=== PATIENT | female | born 1985 | race African-American/Black ===

== ENCOUNTER 2022-09-26 21:13 | Emergency (ER) | payer SELFPAY ==
[2022-09-26 22:20] LABS: #Basophils 0.1 thou/uL (0.0-0.2); #Eosinphils 0.1 thou/uL (0.0-0.7); #Lymphocytes 2.1 thou/uL (1.20-3.40); #Monocytes 0.5 thou/uL (0.11-0.59); #Neutrophils 3.2 thou/uL (1.40-6.50); %Basophils 1.5 % (0.0-1.0); %Eosinophils 1.8 % (0.0-10.0); %Lymphocytes 34.9 % (21.0-51.0); %Neutrophils 53.8 % (42.0-75.0); Hemoglobin 14.6 g/dL (12.0-16.0); Mean Corpuscular HGB CONC 33.2 g/dL (32.0-36.0); Mean Corpuscular Hemoglobin 27.6 pg (27.0-31.0); Mean Corpuscular Volume 83.1 fl (78.0-98.0); Mean Platelet Volume 9.1 fL (7.4-10.4); Platelet Count 218 10x3/uL (130-400); RBC Distribution Width 14.2 % (11.5-14.5); Red Blood Cell (RBC) Count 5.28 mill/uL (4.20-5.40); White Blood Cell (WBC) Count 5.9 10x3/uL (4.8-10.8)
[2022-09-26 22:41] LABS: ALT (SGPT) 12 U/L (8-55); AST (SGOT) 16 U/L (5-34); Alkaline Phosphatase 63 U/L (40-110); Anion Gap 13 mmol/L (10-20); BUN (Urea Nitrogen) 9 mg/dL (7.0-18.7); Bilirubin, Total 0.2 mg/dL (0.2-1.2); Calc. Creatinine Clearance 0 mL/min (70-130); Calcium 9.4 mg/dL (7.8-10.44); Carbon Dioxide 25 mmol/L (22-29); Chloride 103 mmol/L (98-107); Estimated GFR 83; Globulin 4.1 g/dL (2.4-3.5); Glucose 100 mg/dL (70-105); Potassium 3.6 mmol/L (3.5-5.1); Protein, Total 8.1 g/dL (6.0-8.3); Sodium 137 mmol/L (136-145)
[2022-09-26] MEDS ORDERED: Ondansetron ODT 4 MG TAB ONE (23:00)
[2022-09-26 23:16] LABS: Bilirubin Negative (Negative); Blood, Urine Negative (Negative); Clarity Clear (Clear); Glucose, Urine (Dipstick) Normal (Negative); Ketone, Urine Negative (Negative); Leukocyte Negative Leu/uL (Negative); Nitrite Negative (Negative); Protein, Urine (Dipstick) Negative (Neg-Trace); Specific Gravity, Urine 1.014 (1.002-1.036); Urobilinogen Normal mg/dL (Less than 2)
[2022-09-26 23:17] LABS: SARS-CoV-2 NAA Rapid Test DETECTED (NotDetected)
[2022-09-27] MEDS ORDERED: Ibuprofen 800 MG TAB ONE (00:14)
[2022-09-27] MEDS ORDERED: Acetaminophen 500 MG TAB ONE (00:14)
== END 2022-09-27 00:30 | disposition home or self-care (01) ==
LOC: ERS 21:13
DX: U07.1 COVID-19 (principal); R19.7 Diarrhea, unspecified; M79.10 Myalgia, unspecified site; R11.2 Nausea with vomiting, unspecified; F17.210 Nicotine dependence, cigarettes, uncomplicated
CPT/HCPCS: 36415; 71045; 80053; 81003; 84484; 85025; 93005; Q0162

== ENCOUNTER 2023-02-03 04:10 | Emergency (ER) | payer SELFPAY ==
[2023-02-03] MEDS ORDERED: Acetaminophen 500 MG TAB ONE (04:53)
[2023-02-03] MEDS ORDERED: Ipratropium/Albuterol 3 ML NEB ONE ×2 (04:55)
[2023-02-03 06:38] LABS: #Basophils 0.1 thou/uL (0.0-0.2); #Eosinphils 0.1 thou/uL (0.0-0.7); #Monocytes 0.3 thou/uL (0.11-0.59); #Neutrophils 7.1 thou/uL (1.40-6.50); %Basophils 0.7 % (0.0-1.0); %Eosinophils 1.1 % (0.0-10.0); %Lymphocytes 13.3 % (21.0-51.0); %Monocytes 3.6 % (0.0-10.0); %Neutrophils 80.6 % (42.0-75.0); Hemoglobin 12.5 g/dL (12.0-16.0); Mean Corpuscular HGB CONC 32.9 g/dL (32.0-36.0); Mean Corpuscular Hemoglobin 27.2 pg (27.0-31.0); Mean Corpuscular Volume 82.6 fl (78.0-98.0); Mean Platelet Volume 9.9 fL (7.4-10.4); Platelet Count 263 10x3/uL (130-400); RBC Distribution Width 14.7 % (11.5-14.5); White Blood Cell (WBC) Count 8.8 10x3/uL (4.8-10.8)
[2023-02-03 07:02] LABS: ALT (SGPT) 13 U/L (8-55); AST (SGOT) 10 U/L (5-34); Albumin 3.6 g/dL (3.5-5.0); Alkaline Phosphatase 66 U/L (40-110); Anion Gap 13 mmol/L (10-20); BUN (Urea Nitrogen) 12 mg/dL (7.0-18.7); Bilirubin, Total 0.3 mg/dL (0.2-1.2); Calc. Creatinine Clearance 0 mL/min (70-130); Calcium 8.8 mg/dL (7.8-10.44); Carbon Dioxide 22 mmol/L (22-29); Chloride 107 mmol/L (98-107); Estimated GFR 90; Globulin 3.5 g/dL (2.4-3.5); Glucose 127 mg/dL (70-105); Potassium 3.9 mmol/L (3.5-5.1); Protein, Total 7.1 g/dL (6.0-8.3); Sodium 138 mmol/L (136-145)
[2023-02-03 07:05] LABS: Troponin I Less than 0.010 ng/mL (< 0.028)
== END 2023-02-03 08:15 | disposition home or self-care (01) ==
LOC: ERS 04:10
DX: J45.901 Unspecified asthma with (acute) exacerbation (principal); F17.210 Nicotine dependence, cigarettes, uncomplicated
CPT/HCPCS: 71045; 80053; 84484; 85025; 93005; J7620

== ENCOUNTER 2023-02-28 11:39 | Emergency (ER) | payer SELFPAY ==
[2023-02-28] MEDS ORDERED: Dexameth. Sod Phosp. 10 MG/ML (CHEMO USE ONLY) ONE (13:01)
[2023-02-28] MEDS ORDERED: Dexamethasone 4 mg/ml Vial ONE (13:01)
== END 2023-02-28 15:36 | disposition home or self-care (01) ==
LOC: ERS 11:39
DX: J44.1 Chronic obstructive pulmonary disease with (acute) exacerbation (principal); F17.210 Nicotine dependence, cigarettes, uncomplicated
CPT/HCPCS: 99284; J1100

== ENCOUNTER 2023-04-08 03:51 | Emergency (ER) | payer MEDICAID, SELFPAY ==
[2023-04-08] MEDS ORDERED: Ipratropium/Albuterol 3 ML NEB ONE (03:59)
[2023-04-08] MEDS ORDERED: Magnesium 2 GM/50 ML BAG (IN WATER) ONE (03:59)
[2023-04-08] MEDS ORDERED: predniSONE 20 MG TAB ONE (03:59)
[2023-04-08] MEDS ORDERED: Ketorolac Tromethamine 30 MG/ML VIAL ONE (04:31)
[2023-04-08 04:52] LABS: #Basophils 0.1 thou/uL (0.0-0.2); #Eosinphils 0.3 thou/uL (0.0-0.7); #Monocytes 0.8 thou/uL (0.11-0.59); %Basophils 0.6 % (0.0-1.0); %Eosinophils 2.7 % (0.0-10.0); %Monocytes 7.5 % (0.0-10.0); %Neutrophils 56.8 % (42.0-75.0); Hematocrit 39.8 % (36.0-47.0); Hemoglobin 13.3 g/dL (12.0-16.0); Mean Corpuscular HGB CONC 33.4 g/dL (32.0-36.0); Mean Corpuscular Hemoglobin 27.3 pg (27.0-31.0); Mean Corpuscular Volume 81.6 fl (78.0-98.0); Platelet Count 209 10x3/uL (130-400); RBC Distribution Width 14.1 % (11.5-14.5); Red Blood Cell (RBC) Count 4.88 mill/uL (4.20-5.40); White Blood Cell (WBC) Count 10.5 10x3/uL (4.8-10.8)
[2023-04-08 05:00] LABS: BHCG - Serum Negative (NEGATIVE); Pregs Control Bar Appear? YES (CONTROL BAR)
[2023-04-08 05:01] LABS: Pregs Control Background? CLEAR/WHITE (CLR/WHITE)
[2023-04-08 05:14] LABS: Troponin I Less than 0.010 ng/mL (< 0.028)
[2023-04-08 05:18] LABS: ALT (SGPT) 16 U/L (8-55); AST (SGOT) 17 U/L (5-34); Albumin 4.1 g/dL (3.5-5.0); Alkaline Phosphatase 66 U/L (40-110); Anion Gap 16 mmol/L (10-20); BUN (Urea Nitrogen) 16 mg/dL (7.0-18.7); Bilirubin, Total 0.3 mg/dL (0.2-1.2); Calc. Creatinine Clearance 0 mL/min (70-130); Calcium 9.2 mg/dL (7.8-10.44); Carbon Dioxide 22 mmol/L (22-29); Chloride 106 mmol/L (98-107); Estimated GFR 94; Globulin 3.1 g/dL (2.4-3.5); Glucose 97 mg/dL (70-105); Potassium 4.3 mmol/L (3.5-5.1); Protein, Total 7.2 g/dL (6.0-8.3); Sodium 140 mmol/L (136-145)
== END 2023-04-08 05:36 | disposition home or self-care (01) ==
LOC: ERS 03:51
DX: J45.901 Unspecified asthma with (acute) exacerbation (principal); F17.210 Nicotine dependence, cigarettes, uncomplicated
CPT/HCPCS: 36415; 71045; 80053; 83880; 84484; 84703; 85025; 93005; 96365; 96375; J1885; J3475; J7512; J7620

== ENCOUNTER 2023-04-09 00:32 | Inpatient (IN) | payer MEDICARE, MEDICAID ==
[2023-04-09] MEDS ORDERED: Dexamethasone 10 MG/ML VIAL ONE (01:17)
[2023-04-09] MEDS ORDERED: Ipratropium/Albuterol 3 ML NEB ONE (01:44)
[2023-04-09] MEDS ORDERED: Acetaminophen 325 MG TAB ONE ×2 (02:34→10:50)
[2023-04-09 04:30] LABS: #Basophils 0.1 thou/uL (0.0-0.2); #Monocytes 0.8 thou/uL (0.11-0.59); #Neutrophils 13.6 thou/uL (1.40-6.50); %Basophils 0.3 % (0.0-1.0); %Eosinophils 0.1 % (0.0-10.0); %Lymphocytes 10.2 % (21.0-51.0); %Monocytes 4.8 % (0.0-10.0); Hematocrit 37.2 % (36.0-47.0); Hemoglobin 12.7 g/dL (12.0-16.0); Mean Corpuscular HGB CONC 34.1 g/dL (32.0-36.0); Mean Corpuscular Hemoglobin 27.7 pg (27.0-31.0); Mean Platelet Volume 9.5 fL (7.4-10.4); Platelet Count 264 10x3/uL (130-400); Red Blood Cell (RBC) Count 4.59 mill/uL (4.20-5.40); White Blood Cell (WBC) Count 16.1 10x3/uL (4.8-10.8)
[2023-04-09] MEDS ORDERED: Magnesium 2 GM/50 ML BAG (IN WATER) ONE (04:35)
[2023-04-09 04:53] LABS: ALT (SGPT) 17 U/L (8-55); AST (SGOT) 14 U/L (5-34); Albumin 4.1 g/dL (3.5-5.0); Alkaline Phosphatase 60 U/L (40-110); Anion Gap 15 mmol/L (10-20); BUN (Urea Nitrogen) 12 mg/dL (7.0-18.7); Bilirubin, Total 0.3 mg/dL (0.2-1.2); Calc. Creatinine Clearance 0 mL/min (70-130); Calcium 9.1 mg/dL (7.8-10.44); Carbon Dioxide 23 mmol/L (22-29); Chloride 105 mmol/L (98-107); Estimated GFR 84; Globulin 3.5 g/dL (2.4-3.5); Glucose 124 mg/dL (70-105); Potassium 3.8 mmol/L (3.5-5.1); Protein, Total 7.6 g/dL (6.0-8.3); Sodium 139 mmol/L (136-145)
[2023-04-09] MEDS ORDERED: Acetaminophen 325 MG TAB PO PRN (06:00)
[2023-04-09] MEDS ORDERED: Ondansetron PF 4 MG/2 ML Vial IVP PRN (06:00)
[2023-04-09] MEDS ORDERED: Ondansetron ODT 4 MG TAB SL PRN (06:00)
[2023-04-09 06:31] VITALS: BMI 63.8
[2023-04-09] MEDS: Ipratropium/Albuterol 3 ML NEB NEB SCH ×4 (10:50→22:43)
[2023-04-09] MEDS ORDERED: Benzonatate 100 MG CAP ONE (11:29)
[2023-04-09] MEDS: Benzonatate 100 MG CAP PO SCH ×3 (11:31→19:54)
[2023-04-09] MEDS ORDERED: FLU VACC QS2023-24(6MOS UP)/PF 60 MCG/0.5 ML SYRINGE IM ONE (13:30)
[2023-04-09] MEDS ORDERED: methylPREDNISolone Sod Succ/PF 125 MG/2 ML VIAL IVP SCH (14:00)
[2023-04-09] MEDS: HYDROcodone/Acetaminophen 10/325 mg Tablet PO PRN ×2 (14:56→20:56)
[2023-04-09] MEDS ORDERED: methylPREDNISolone Sod Succ 40 MG VIAL IVP SCH ×2 (15:00→22:00)
[2023-04-09] MEDS: Doxycycline 100 MG in Sodium Chloride 0.9% 100 ML IVPB SCH (19:55)
[2023-04-09] MEDS: methylPREDNISolone Sod Succ 40 MG VIAL IVP SCH (20:59)
[2023-04-10] MEDS: Guaifenesin DM 100-10/5 ML UDCUP PO PRN ×4 (00:22→20:39)
[2023-04-10] MEDS: Ipratropium/Albuterol 3 ML NEB NEB SCH ×6 (02:54→22:10)
[2023-04-10] MEDS: HYDROcodone/Acetaminophen 10/325 mg Tablet PO PRN ×3 (05:34→20:31)
[2023-04-10] MEDS: methylPREDNISolone Sod Succ 40 MG VIAL IVP SCH ×2 (05:38→14:13)
[2023-04-10 05:43] LABS: #Monocytes 0.3 thou/uL (0.11-0.59); #Neutrophils 11.2 thou/uL (1.40-6.50); %Basophils 0.2 % (0.0-1.0); %Lymphocytes 6.8 % (21.0-51.0); %Monocytes 2.7 % (0.0-10.0); %Neutrophils 89.7 % (42.0-75.0); Hematocrit 36.5 % (36.0-47.0); Mean Corpuscular HGB CONC 32.9 g/dL (32.0-36.0); Mean Corpuscular Hemoglobin 26.4 pg (27.0-31.0); Mean Corpuscular Volume 80.4 fl (78.0-98.0); Mean Platelet Volume 10.1 fL (7.4-10.4); Platelet Count 284 10x3/uL (130-400); RBC Distribution Width 14.1 % (11.5-14.5); Red Blood Cell (RBC) Count 4.54 mill/uL (4.20-5.40); White Blood Cell (WBC) Count 12.5 10x3/uL (4.8-10.8)
[2023-04-10 06:11] LABS: Anion Gap 13 mmol/L (10-20); BUN (Urea Nitrogen) 13 mg/dL (7.0-18.7); CRP (Inflammatory) 0.56 mg/dL (= or < 0.5); Calc. Creatinine Clearance 251 mL/min (70-130); Calcium 9.1 mg/dL (7.8-10.44); Carbon Dioxide 23 mmol/L (22-29); Chloride 105 mmol/L (98-107); Estimated GFR 102; Glucose 133 mg/dL (70-105); Potassium 4.4 mmol/L (3.5-5.1); Sodium 137 mmol/L (136-145)
[2023-04-10] MEDS: Doxycycline 100 MG in Sodium Chloride 0.9% 100 ML IVPB SCH (08:17)
[2023-04-10] MEDS: Benzonatate 100 MG CAP PO SCH ×3 (08:18→20:32)
[2023-04-10] MEDS ORDERED: Albuterol 200 PUFF (6.7GM INHALER) INH PRN (19:42)
[2023-04-10] MEDS: Doxycycline 100 MG CAP PO SCH (20:32)
[2023-04-10] MEDS ORDERED: Montelukast Sodium 10 mg Tablet PO SCH (21:00)
[2023-04-11] MEDS: Ipratropium/Albuterol 3 ML NEB NEB SCH ×4 (02:24→15:04)
[2023-04-11] MEDS: HYDROcodone/Acetaminophen 10/325 mg Tablet PO PRN ×3 (02:36→14:42)
[2023-04-11] MEDS ORDERED: predniSONE 20 MG TAB PO SCH (08:00)
[2023-04-11] MEDS: Doxycycline 100 MG CAP PO SCH (08:04)
[2023-04-11] MEDS: Benzonatate 100 MG CAP PO SCH ×2 (08:04→14:42)
[2023-04-11] MEDS: Guaifenesin DM 100-10/5 ML UDCUP PO PRN (14:42)
[2023-04-11 16:27] VITALS: BP 164/70; TEMP 98.4
== END 2023-04-11 18:41 | disposition home or self-care (01) | DRG 202 ==
LOC: ERS 00:32 → ERHOLD 06:08 → T4-A 13:12 → OBSVTOIN 04-10 19:39
PROVIDERS: ADMIT Hospitalist; ATTEND Hospitalist
DX: J45.901 Unspecified asthma with (acute) exacerbation (principal); J18.9 Pneumonia, unspecified organism; Z68.44 Body mass index [BMI] 60.0-69.9, adult; Z88.1 Allergy status to other antibiotic agents; E66.01 Morbid (severe) obesity due to excess calories; I89.0 Lymphedema, not elsewhere classified; F17.210 Nicotine dependence, cigarettes, uncomplicated; Z91.190 Patient's noncompliance with other medical treatment and regimen due to financial hardship
CPT/HCPCS: 36415; 71045; 80048; 80053; 83735; 84145; 85025; 86140; 94640; 96365; 97139; J1100; J2920; J3475; J3490; J7512; J7611; J7620

== ENCOUNTER 2024-07-01 21:23 | Inpatient (IN) | payer MEDICAID, MEDICARE ==
[2024-07-01 22:20] LABS: #Basophils 0.05 10x3/uL (0.0-0.2); %Basophils 0.3 % (0.0-1.0); %Eosinophils 1.7 % (0.0-10.0); %Lymphocytes 11.1 % (21.0-51.0); %Monocytes 3.9 % (0.0-10.0); %Neutrophils 81.9 % (42.0-75.0); Hematocrit 33.7 % (36.0-47.0); Hemoglobin 11.4 g/dL (12.0-16.0); Mean Corpuscular HGB CONC 33.8 g/dL (32.0-36.0); Mean Corpuscular Hemoglobin 26.5 pg (27.0-31.0); Mean Corpuscular Volume 78.4 fL (78.0-98.0); Mean Platelet Volume 8.8 fL (7.4-10.4); Platelet Count 498 10x3/uL (130-400); RBC Distribution Width 14.6 % (11.5-14.5)
[2024-07-01 22:42] LABS: Anion Gap 13 mmol/L (10-20); BUN (Urea Nitrogen) 9 mg/dL (7.0-18.7); Calc. Creatinine Clearance 0 mL/min (70-130); Carbon Dioxide 29 mmol/L (22-29); Chloride 102 mmol/L (98-107); Potassium 3.5 mmol/L (3.5-5.1); Sodium 140 mmol/L (136-145)
[2024-07-01 22:43] LABS: ALT (SGPT) 9 U/L (Less than 34); AST (SGOT) 36 U/L (11-34); Albumin 2.3 g/dL (3.1-4.5); Alkaline Phosphatase 68 U/L (40-110); Bilirubin, Total 0.3 mg/dL (0.3-1.2); Calcium 8.7 mg/dL (7.8-10.44); Estimated GFR 108; Glucose 112 mg/dL (70-105); Protein, Total 8.3 g/dL (6.0-8.3)
[2024-07-02] MEDS ORDERED: Morphine 4 MG/ML VIAL ONE (00:51)
[2024-07-02] MEDS ORDERED: Piperacillin/Tazobactam 4.5 GM VIAL ONE (00:52)
[2024-07-02] MEDS ORDERED: Sodium Chloride 0.9% 100 ML ONE (00:52)
[2024-07-02] MEDS ORDERED: Ipratropium/Albuterol 3 ML NEB ONE (01:07)
[2024-07-02] MEDS ORDERED: Ondansetron ODT 4 MG TAB PO PRN (03:53)
[2024-07-02] MEDS: Ibuprofen 600 MG TAB PO PRN (04:49)
[2024-07-02 05:34] VITALS: BMI 61.9
[2024-07-02] MEDS: Acetaminophen 325 MG TAB PO PRN (05:49)
[2024-07-02] MEDS ORDERED: SULFAMETHOXAZOLE IVPB SCH (09:00)
[2024-07-02] MEDS ORDERED: WATER IVPB SCH (09:00)
[2024-07-02] MEDS ORDERED: Enoxaparin 40 MG (0.4 mL) SYRINGE SC SCH (09:00)
[2024-07-02] MEDS ORDERED: TRIMETHOPRIM IVPB SCH (09:00)
[2024-07-02] MEDS ORDERED: DEXTROSE 5% IVPB SCH (09:00)
[2024-07-02] MEDS: Ketorolac Tromethamine 30 MG (1 mL) VIAL IVP SCH ×2 (09:30→15:43)
[2024-07-02] MEDS: Clindamycin/D5W 600 MG in Premix 1 BAG IVPB SCH (09:31)
[2024-07-02] MEDS: Enoxaparin 40 MG (0.4 mL) SYRINGE SC SCH (09:33)
[2024-07-02] MEDS: Ipratropium/Albuterol 3 ML NEB NEB PRN (10:25)
[2024-07-02] MEDS: Morphine 4 MG/ML VIAL SLOW IVP SCH (17:17)
[2024-07-02] MEDS: Albuterol 2.5 MG (3 mL) NEB NEB PRN (22:06)
[2024-07-03] MEDS: Morphine 2 MG/ML VIAL SLOW IVP SCH ×2 (00:03→15:07)
[2024-07-03 05:45] LABS: #Basophils 0.05 10x3/uL (0.0-0.2); %Basophils 0.4 % (0.0-1.0); %Lymphocytes 16.8 % (21.0-51.0); %Monocytes 5.5 % (0.0-10.0); %Neutrophils 74.2 % (42.0-75.0); Hematocrit 32.9 % (36.0-47.0); Hemoglobin 10.2 g/dL (12.0-16.0); Mean Corpuscular Hemoglobin 26.4 pg (27.0-31.0); Mean Corpuscular Volume 85.2 fL (78.0-98.0); Mean Platelet Volume 9.4 fL (7.4-10.4); Platelet Count 447 10x3/uL (130-400); RBC Distribution Width 14.9 % (11.5-14.5); Red Blood Cell (RBC) Count 3.86 mill/uL (4.20-5.40)
[2024-07-03 06:52] LABS: Anion Gap 11 mmol/L (10-20); BUN (Urea Nitrogen) 8 mg/dL (7.0-18.7); Calc. Creatinine Clearance 276 mL/min (70-130); Calcium 7.9 mg/dL (7.8-10.44); Carbon Dioxide 28 mmol/L (22-29); Chloride 104 mmol/L (98-107); Estimated GFR 115; Glucose 100 mg/dL (70-105); Potassium 3.7 mmol/L (3.5-5.1); Sodium 139 mmol/L (136-145)
[2024-07-03] MEDS: traMADol HCl 50 MG TAB PO PRN ×2 (09:13→17:40)
[2024-07-03] MEDS: Ketorolac Tromethamine 30 MG (1 mL) VIAL IVP PRN (12:21)
[2024-07-03] MEDS: Mometasone 100 MCG/Formoterol 5 MCG 120 PUFF INHALER INH SCH (18:34)
[2024-07-03] MEDS: Morphine 4 MG/ML VIAL SLOW IVP SCH (22:21)
[2024-07-04] MEDS: Gabapentin 300 MG CAP PO SCH ×2 (04:04→20:15)
[2024-07-04 05:21] LABS: #Basophils 0.05 10x3/uL (0.0-0.2); %Basophils 0.4 % (0.0-1.0); %Eosinophils 2.7 % (0.0-10.0); %Lymphocytes 19.2 % (21.0-51.0); %Neutrophils 70.7 % (42.0-75.0); Hematocrit 27.9 % (36.0-47.0); Hemoglobin 9.3 g/dL (12.0-16.0); Mean Corpuscular HGB CONC 33.3 g/dL (32.0-36.0); Mean Corpuscular Hemoglobin 26.3 pg (27.0-31.0); Mean Corpuscular Volume 78.8 fL (78.0-98.0); Mean Platelet Volume 8.5 fL (7.4-10.4); Platelet Count 451 10x3/uL (130-400); RBC Distribution Width 14.6 % (11.5-14.5); Red Blood Cell (RBC) Count 3.54 mill/uL (4.20-5.40)
[2024-07-04 05:39] LABS: Anion Gap 9 mmol/L (10-20); BUN (Urea Nitrogen) 10 mg/dL (7.0-18.7); Calc. Creatinine Clearance 253 mL/min (70-130); Calcium 8.4 mg/dL (7.8-10.44); Carbon Dioxide 28 mmol/L (22-29); Chloride 104 mmol/L (98-107); Estimated GFR 108; Glucose 92 mg/dL (70-105); Potassium 4.3 mmol/L (3.5-5.1); Sodium 137 mmol/L (136-145)
[2024-07-04] MEDS: Acetaminophen/Codeine 30-300mg Tablet PO PRN (09:32)
[2024-07-04] MEDS: Ibuprofen 800 MG TAB PO SCH (09:33)
[2024-07-04] MEDS: Acetaminophen 500 MG TAB PO SCH (09:47)
[2024-07-04] MEDS: HYDROcodone/Acetaminophen 5/325 mg Tablet PO PRN (14:17)
[2024-07-04] MEDS: Clindamycin 150 MG CAP PO SCH (16:05)
[2024-07-05 06:35] LABS: #Basophils 0.03 10x3/uL (0.0-0.2); %Basophils 0.3 % (0.0-1.0); %Eosinophils 3.8 % (0.0-10.0); %Lymphocytes 18.9 % (21.0-51.0); %Monocytes 7.5 % (0.0-10.0); %Neutrophils 68.1 % (42.0-75.0); Hematocrit 28.6 % (36.0-47.0); Hemoglobin 9.4 g/dL (12.0-16.0); Mean Corpuscular HGB CONC 32.9 g/dL (32.0-36.0); Mean Corpuscular Hemoglobin 26.5 pg (27.0-31.0); Mean Corpuscular Volume 80.6 fL (78.0-98.0); Mean Platelet Volume 8.3 fL (7.4-10.4); Platelet Count 494 10x3/uL (130-400); RBC Distribution Width 14.4 % (11.5-14.5); Red Blood Cell (RBC) Count 3.55 mill/uL (4.20-5.40)
[2024-07-05 07:06] LABS: Anion Gap 8 mmol/L (10-20); BUN (Urea Nitrogen) 10 mg/dL (7.0-18.7); Calc. Creatinine Clearance 261 mL/min (70-130); Calcium 8.4 mg/dL (7.8-10.44); Carbon Dioxide 28 mmol/L (22-29); Chloride 105 mmol/L (98-107); Estimated GFR 112; Glucose 106 mg/dL (70-105); Potassium 4.4 mmol/L (3.5-5.1); Sodium 137 mmol/L (136-145)
[2024-07-05] MEDS: Calcium Carbonate 500 MG ChewTAB PO PRN (09:14)
[2024-07-05 13:09] VITALS: BP 162/89; TEMP 97.6
== END 2024-07-05 13:50 | disposition home or self-care (01) | DRG 603 ==
LOC: ERS 21:23 → SURG B 07-02 04:01 → OBSVTOIN 07-03 09:15
PROVIDERS: ADMIT Family Medicine; ATTEND Family Medicine
DX: L03.116 Cellulitis of left lower limb (principal); I89.0 Lymphedema, not elsewhere classified; J45.909 Unspecified asthma, uncomplicated; D57.3 Sickle-cell trait; R23.4 Changes in skin texture; Z79.899 Other long term (current) drug therapy
CPT/HCPCS: 36415; 76999; 80048; 80053; 83605; 85025; 87040; 94640; 96365; 96367; 96372; 96375; 96376; 97139; G0378; J1650; J1885; J2270; J2272; J2543; J3490; J7611; J7620

== ENCOUNTER 2025-01-19 10:33 | Emergency (ER) | payer MEDICARE, MEDICAID | END 2025-01-19 14:55 | disposition home or self-care (01) | LOC: ERS 10:33 | DX: J45.902 Unspecified asthma with status asthmaticus (principal); J20.9 Acute bronchitis, unspecified; F17.210 Nicotine dependence, cigarettes, uncomplicated; Z79.51 Long term (current) use of inhaled steroids | CPT/HCPCS: 71045; 87428; 94640; J2919; 96372; J7620 ==